=== PATIENT | female | born 1970 | race Caucasian/White ===

== ENCOUNTER 2020-03-24 04:19 | Emergency (ER) | payer BC ==
[~2020-03-24] VITALS: Ht 157.5 cm; Wt 59.0 kg
[2020-03-24 04:30] VITALS: BP 116/93
--- NOTE | 2020-03-24 04:30 | NUR ---
PT TAKEN TO BED 2. PT AMBULATED WITH STEADY GAIT.
--- NOTE | 2020-03-24 04:35 | NUR ---
PT 50 Y/O FEMALE BIB SELF FOR C/O INSOMNIA X 3 MOTNHS. PT STATES," I DON'T FEEL GOOD. I FEEL LIKE BY WHOLE BODY CARRANZA. I FEEL LIKE I'M BLEEDING INSIDE BECAUSE MY EYES ARE RED." PT STATES SHE WENT TO HER PCP AND HAD BLOOD WORK DONE. PT STATES MD SAID ALL LABS WERE NORMAL. PT ALSO WENT TO URGENT [facility]ARE ANS SHE WAS DX WITH UTI. PT CURRENTLY TAKING ABT FOR UTI. PT RESPIRATIONS ARE EVEN AND UNLABORED. SKIN IS WARM AND DRY TO TOUCH. PT VSS. AFEBILE. DENIES COUGH, SOB, AND N/V/D. NEGATIVE COVID SCREEN. PT WEARING MASK. MEDHX: NONE ALLERGIES: NKA
[2020-03-24 05:30] VITALS: BP 122/89
--- NOTE | 2020-03-24 05:30 | NUR ---
Patient discharged with v/s stable. Written and verbal after care instructions given and explained. Patient alert, oriented and verbalized understanding of instructions. Ambulatory with steady gait. All questions addressed prior to discharge. ID band removed. Patient advised to follow up with PMD. Rx of MOTRIN, ATARAX given. Patient educated on indication of medication including possible reaction and side effects. Opportunity to ask questions provided and answered.
== END 2020-03-24 05:30 | disposition home or self-care (01) ==
LOC: MED 04:19
DX: F41.9 Anxiety disorder, unspecified (principal); Z90.49 Acquired absence of other specified parts of digestive tract
CPT/HCPCS: 99283